=== PATIENT | female | born 1970 | race African-American/Black ===

== ENCOUNTER 2023-02-14 15:07 | Outpatient (CLI) | payer MEDICARE, SELFPAY ==
[2023-02-14 15:12] VITALS: BMI 21.7
--- NOTE | 2023-02-14 15:27 | PC.NURSE ---
1520 CBC/CMP drawn per venipuncture to R outer AC area with butterfly needle x1 stick. Patient tolerated well. Patient here for appointment with Dr. Scott.
[2023-02-14 15:30] LABS: Basophils % 0.1 % (0.1-2.0); Eosinophils # 0.1 K/mm3 (0.0-0.4); Eosinophils % 1.1 % (0.1-12.0); Hematocrit 37.2 % (37.0-47.0); Hemoglobin 12.1 g/dL (12.2-16.2); Lymphocytes # 0.7 K/mm3 (0.7-4.5); Lymphocytes % 6.7 % (10-50); Mean Corpuscular HGB Conc 32.6 g/dL (31.8-35.4); Mean Corpuscular Hemoglobin 27.1 pg (27.0-31.2); Mean Corpuscular Volume 83.2 fl (81-99); Mean Platelet Volume 7.4 fl (7.4-10.4); Monocytes # 0.2 K/mm3 (0.1-1.0); Monocytes % 2.3 % (1.7-9.3); Neutrophils # 8.9 K/mm3 (1.8-7.8); Neutrophils % 89.8 % (37.0-80.0); Platelet Count 454 K/mm3 (142-424); Red Blood Count 4.47 M/mm3 (4.20-5.40); Red Cell Distribution Width 16.2 % (11.5-17.5)
[2023-02-14 15:31] LABS: MANUAL DIFFERENTIAL MANUAL DIFFERENTIAL (MANUAL DIFF)
[2023-02-14 15:41] LABS: Eosinophils % 2 % (0-3); Lymphocytes % 7 % (10-50); Microcytosis 1+; Monocytes % 4 % (2-9); Neutrophils % 87 % (42-76); Platelet Estimate Normal; Total Cells Counted 100
[2023-02-14 15:47] LABS: Alanine Aminotransferase 30 U/L (12-78); Albumin Level 3.6 g/dl (3.5-5.0); Alkaline Phosphatase 171 U/L (38-126); Aspartate Amino Transferase 33 U/L (14-36); Bilirubin,Total 0.3 mg/dl (0.2-1.3); Blood Urea Nitrogen 14 mg/dl (7-17); Calcium 9.2 mg/dl (8.4-10.2); Carbon Dioxide 30 mmol/L (22.0-30.0); Chloride 94 mmol/L (98-107); Creatinine Clearance Estimated 71 mL/min (50-200); Estimated Glomerular Filt Rate 66 ml/min (>60); GFR (African American) 80 ML/MIN (>60); Globulin 3.7 g/dL (1.3-3.2); Glucose 122 mg/dl (74-100); Sodium 134 mmol/L (136-145); Total Protein,Serum 7.3 g/dl (6.3-8.2)
== END 2023-02-14 15:58 | disposition home or self-care (01) ==
LOC: INF 15:07
PROVIDERS: PCP Family Medicine; Visit Provider Internal Medicine Medical Oncology
DX: C64.9 Malignant neoplasm of unspecified kidney, except renal pelvis (principal)
CPT/HCPCS: 36415; 80053; 85007; 85025

== ENCOUNTER → 2023-02-19 08:46 | Outpatient (CLI) | payer MEDICARE, SELFPAY ==
--- NOTE | 2023-02-19 08:49 | NM_ITS ---
FINAL REPORT CLINICAL HISTORY: RENAL CELL CANCER COMPARISON: No prior films are available for reference. FINDINGS: WHOLE BODY BONE SCAN PROCEDURE: The patient was injected with 26.2 mCi of technetium 99M MDP. Images were obtained after a three-hour delay. FINDINGS: There is increased tracer activity in the right 4th or 5th distal rib of uncertain significance. This may represent bony lesion or fracture. The right kidney is not visualized and may be absent. No other abnormal radiotracer activity identified. IMPRESSION: Increased tracer activity right 4th or 5th distal rib of uncertain significance. Correlation with plain radiographs or chest CT recommended. Reviewed, Interpreted and Dictated by Pardeep Mai III, MD Transcribed by Olive Oro Authenticated and . [facility]
--- NOTE | 2023-02-19 08:51 | CT_ITS ---
FINAL REPORT CLINICAL HISTORY: RENAL CELL CANCER COMPARISON: None FINDINGS: CT CHEST WITH AND WITHOUT CONTRAST: CT examination with and without contrast was performed in the chest. No significant mediastinal or hilar adenopathy is visualized on this exam. No axillary nodes are present. No infiltrates or nodules are noted. No pleural effusions or pericardial effusion is present. Note is made of a 4 mm cystic nodule in the right lobe of the thyroid gland. Changes in the upper abdomen seen on the lower images are discussed in the CT abdomen and chest dictation from the same date. IMPRESSION: 4 mm cystic nodule in the right lobe of the thyroid gland. Otherwise unremarkable CT of the chest with and without contrast. Reviewed, Interpreted and Dictated by Pardeep Mai III, MD Transcribed by Luz Elena Diaz Authenticated and [facility]
--- NOTE | 2023-02-19 08:51 | CT_ITS ---
FINAL REPORT TECHNIQUE: Axial CT images of the abdomen and pelvis were obtained before and after the administration of IV contrast. Oral contrast was administered.This study was performed with techniques to keep radiation doses as low as reasonably achievable (ALARA). Individualized dose reduction techniques using automated exposure control or adjustment of mA and/or kV according to the patient's size were employed. CLINICAL HISTORY: RENAL CELL CANCER COMPARISON: None FINDINGS: Abdomen: The lung bases are clear. The heart is normal in size. There are numerous masses noted throughout the liver, consistent with widespread metastatic disease. Many of these are cystic or necrotic, with peripheral enhancement. The larger masses, including 1 in the right lateral liver dome, measure up to 10 mm in size. There are 2 common bile duct stents present with moderate biliary ductal dilatation in the right hepatic lobe, and pneumobilia in the left hepatic lobe. . The spleen is unremarkable, however there is splenic vein thrombosis with multiple collaterals in the left upper abdomen.. No adrenal masses present. There is a borderline in size upper para-aortic node adjacent to the left adrenal gland, which measures 12 mm in size and is nonspecific. There are multiple cystic pancreatic masses with peripheral enhancement, also worrisome for neoplasm although small pseudocysts could have a similar appearance. There is stranding adjacent to the pancreatic head and duodenum, either inflammatory or infiltrative. The right kidney has been surgically resected. There is mild scarring in the left kidney without evidence of focal mass. The aorta is normal in caliber. There is no free fluid or adenopathy. No mass or abnormal fluid collection is seen. Pelvis: The appendix is normal in appearance. The urinary bladder is unremarkable. There is slight wall thickening of the colon at the rectosigmoid junction, of uncertain significance. There is a moderate amount of stool present in the colon. There is no evidence of mass or adenopathy. There is no evidence of bowel obstruction. IMPRESSION: Numerous masses in the liver are consistent with widespread metastatic disease as described. The largest measures up to 10 mm in size. 2 common bile duct stents are present with moderate biliary ductal dilatation in the right hepatic lobe and pneumobilia present in the left hepatic lobe. There are multiple cystic pancreatic masses with peripheral enhancement, worrisome for neoplasm although pseudocysts could have a similar appearance. Prior right nephrectomy in this patient with known renal cell carcinoma. Chronic splenic venous thrombosis with multiple collaterals. Wall thickening of the rectosigmoid junction, of uncertain significance. A moderate amount of stool is noted as well. Would suggest colonoscopy or follow-up CT for further evaluation. Reviewed, Interpreted and Dictated by Pardeep Mai III, MD Transcribed by Luz Elena Diaz Authenticated and . [facility]
[2023-02-19 14:35] VITALS: BMI 21.7
[2023-02-19 15:07] LABS: Basophils % 0.2 % (0.1-2.0); Eosinophils # 0.1 K/mm3 (0.0-0.4); Eosinophils % 0.8 % (0.1-12.0); Hematocrit 32.8 % (37.0-47.0); Hemoglobin 10.3 g/dL (12.2-16.2); Lymphocytes # 1.4 K/mm3 (0.7-4.5); Lymphocytes % 20.6 % (10-50); Mean Corpuscular HGB Conc 31.4 g/dL (31.8-35.4); Mean Corpuscular Hemoglobin 26.5 pg (27.0-31.2); Mean Corpuscular Volume 84.2 fl (81-99); Monocytes # 0.4 K/mm3 (0.1-1.0); Monocytes % 6.4 % (1.7-9.3); Neutrophils # 4.7 K/mm3 (1.8-7.8); Platelet Count 275 K/mm3 (142-424); Red Blood Count 3.89 M/mm3 (4.20-5.40); Red Cell Distribution Width 16.6 % (11.5-17.5); White Blood Count 6.6 K/mm3 (4.8-10.8)
[2023-02-19 15:18] LABS: Alanine Aminotransferase 18 U/L (12-78); Albumin Level 2.8 g/dl (3.5-5.0); Alkaline Phosphatase 105 U/L (38-126); Anion Gap 7.1 mEq/L (5-15); Aspartate Amino Transferase 22 U/L (14-36); Blood Urea Nitrogen 12 mg/dl (7-17); Calcium 8.4 mg/dl (8.4-10.2); Carbon Dioxide 29 mmol/L (22.0-30.0); Chloride 102 mmol/L (98-107); Creatinine Clearance Estimated 91 mL/min (50-200); Estimated Glomerular Filt Rate 88 ml/min (>60); GFR (African American) 106 ML/MIN (>60); Globulin 2.9 g/dL (1.3-3.2); Glucose 87 mg/dl (74-100); Potassium 3.1 mmoL/L (3.5-5.1); Sodium 135 mmol/L (136-145); Total Protein,Serum 5.7 g/dl (6.3-8.2)
[2023-02-19 15:24] LABS: Bilirubin,Total < 0.1 mg/dl (0.2-1.3)
== END ==
PROVIDERS: PCP Family Medicine; Visit Provider Internal Medicine Medical Oncology
DX: C64.9 Malignant neoplasm of unspecified kidney, except renal pelvis (principal)
CPT/HCPCS: 71270; 74178; 78306; 80053; 85025; A9503; Q9967

== ENCOUNTER 2023-04-05 11:26 | Outpatient (CLI) | payer MEDICARE, SELFPAY ==
[2023-04-05 11:28] VITALS: BMI 21.7
[2023-04-05 11:44] LABS: Microscopic, Urine URINE MICROSCOPIC (MICROSCOPIC)
[2023-04-05 11:49] LABS: Appearance,Urine CLEAR (Clear); Blood, Urine 2+ (Negative); Color,Urine YELLOW (Yellow); Glucose,Urine (UA) Negative (Negative); Ketones,Urine Negative (Negative); Leukocyte Esterase,Urine Negative (Negative); Nitrate,Urine Negative (Negative); PH,Urine 6.5 (5.0-8.5); Protein,Urine TRACE (Negative); Urobilinogen,Urine 0.2 EU/dl (0.2)
[2023-04-05 12:05] LABS: Amorphous Sediment,Urine Trace /lpf; Mucus,Urine Trace /lpf; WBC,Urine Occasional #/hpf (0-3)
[2023-04-05 13:20] LABS: Bilirubin,Urine Negative (Negative)
== END 2023-04-05 11:35 | disposition home or self-care (01) ==
LOC: INF 11:27
PROVIDERS: Visit Provider Internal Medicine Medical Oncology
DX: C64.9 Malignant neoplasm of unspecified kidney, except renal pelvis (principal)
CPT/HCPCS: 81001; G0463